=== PATIENT | female | born 1980 | race Asian ===

== ENCOUNTER 2017-12-31 08:15 | Outpatient (CLI) | payer BC ==
--- NOTE | 2017-12-31 10:20 | MMO ---
BASELINE SCREENING MAMMOGRAMS: 12/31/2017 HISTORY: Screening mammogram. COMPARISON: None. FINDINGS: The patient's mammogram is interpreted with the assistance of computer aided detection. The breast parenchyma is heterogeneously dense, limiting mammographic sensitivity. No dominant mass or architectural distortion. No concerning microcalcifications are seen. Scattered benign microcalc ification is noted on the left. IMPRESSION: BI-RADS Category 2: Benign findings. Recommend annual screening mammography. POS: [facility]
== END 2017-12-31 08:16 | disposition home or self-care (01) ==
LOC: SCSMAMMO 08:15
PROVIDERS: ATTEND Family Medicine
DX: Z12.31 Encounter for screening mammogram for malignant neoplasm of breast (principal)
CPT/HCPCS: 77067

== ENCOUNTER 2019-01-13 15:13 | Outpatient (CLI) | payer BC ==
--- NOTE | 2019-01-13 15:43 | MMO ---
Bilateral MAMMO Bilat Screen [facility]. CLINICAL HISTORY: Patient is 38 years old and is seen for screening. The patient has the following family history of breast cancer: grandmother. The patient has no personal history of cancer. VIEWS: The views performed were: bilateral craniocaudal and bilateral mediolateral oblique. FILMS COMPARED: The present examination has been compared to a prior imaging study performed at [facility] on 12/31/2017. This study has been interpreted with the assistance of computer-aided detection. MAMMOGRAM FINDINGS: The breasts are extremely dense, which may lower the sensitivity of mammography. There are no suspicious masses, suspicious calcifications, or new areas of architectural distortion. IMPRESSION: THERE IS NO MAMMOGRAPHIC EVIDENCE OF MALIGNANCY. A ROUTINE FOLLOW-UP MAMMOGRAM IN 1 YEAR IS RECOMMENDED. ACR BI-RADS Category 1 - Negative MAMMOGRAPHY NOTE: 1. A negative mammogram report should not delay a biopsy if a dominant of clinically suspicious mass is present. 2. Approximately 10% to 15% of breast cancers are not detected by mammography. 3. Adenosis and dense breasts may obscure an underlying neoplasm.
== END 2019-01-13 15:14 | disposition home or self-care (01) ==
LOC: SCSMAMMO 15:13
PROVIDERS: ATTEND Family Medicine
DX: Z12.31 Encounter for screening mammogram for malignant neoplasm of breast (principal); Z80.3 Family history of malignant neoplasm of breast
CPT/HCPCS: 77067

== ENCOUNTER 2022-04-12 08:53 | Outpatient (CLI) | payer BC ==
[2022-04-12] MEDS ORDERED: Magnevist 469MG/ML 20 ML VIAL ONE (16:09)
== END 2022-04-12 08:54 | disposition home or self-care (01) ==
LOC: TBSIIMAG 08:53
PROVIDERS: ATTEND Student in an Organized Health Care Education/Training Program
DX: N88.8 Other specified noninflammatory disorders of cervix uteri (principal); N81.4 Uterovaginal prolapse, unspecified
CPT/HCPCS: 72197; A9579